=== PATIENT | female | born 1950 | race Caucasian/White ===

== ENCOUNTER 2021-09-02 11:13 | Outpatient (CLI) | payer MEDICARE ==
[2021-09-02 13:00] LABS: Hemoglobin 13.4 g/dL (12.0-15.5); Mean Corpuscular HGB CONC 32.2 g/dL (32.0-36.0); Mean Corpuscular Hemoglobin 29.9 pg (27.0-33.0); Mean Corpuscular Volume 92.9 fl (81.6-98.3); Platelet Count 226 10x3/uL (150-450); RBC Distribution Width 12.7 % (11.5-14.5); Red Blood Cell (RBC) Count 4.48 10x6/uL (3.90-5.03); White Blood Cell (WBC) Count 7.4 10x3/uL (3.5-10.5)
[2021-09-02 13:03] LABS: Anion Gap 11 mmol/L (10-20); BUN (Urea Nitrogen) 17 mg/dL (9.8-20.1); Calc. Creatinine Clearance 0 mL/min (70-130); Calcium 9.5 mg/dL (7.8-10.44); Carbon Dioxide 28 mmol/L (23-31); Chloride 105 mmol/L (98-107); Glucose 101 mg/dL (83-110); Potassium 4.3 mmol/L (3.5-5.1); Sodium 140 mmol/L (136-145)
[2021-09-02 20:38] LABS: SARS-CoV-2 PCR by NAA Not Detected (NotDetected)
== END 2021-09-02 11:14 | disposition home or self-care (01) ==
LOC: CSHLAB 11:13
PROVIDERS: ATTEND Podiatrist Foot & Ankle Surgery
DX: Z01.818 Encounter for other preprocedural examination (principal); Z20.822 Contact with and (suspected) exposure to COVID-19
CPT/HCPCS: 80048; 85027; U0003; U0005

== ENCOUNTER 2021-09-05 09:44 | Day surgery (SDC) | payer MEDICARE ==
[2021-08-21 14:29] VITALS: BMI 24.5
[2021-09-05] MEDS ORDERED: Neomycin-Polymyxin 1 ML AMP ONE (10:31)
[2021-09-05] MEDS ORDERED: Bupivacaine PF 0.5% 30 ML VIAL ONE (10:31)
[2021-09-05] MEDS ORDERED: ceFAZolin 2 GM/Dextrose 50 ML IVPB ONE (11:05)
[2021-09-05] MEDS ORDERED: Ondansetron PF 4 MG/2 ML Vial ONE (11:24)
[2021-09-05] MEDS ORDERED: PROPOFOL 20 ML ONE (11:24)
[2021-09-05] MEDS ORDERED: Fentanyl 100 MCG/2 ML VIAL ONE (11:24)
[2021-09-05] MEDS ORDERED: Dexamethasone 4 mg/ml Vial ONE (11:24)
[2021-09-05] MEDS ORDERED: Lidocaine 1% PF 5 ML VIAL ONE (11:24)
[2021-09-05] MEDS ORDERED: ePHEDrine Sulfate 50 MG/10 ML VIAL ONE (11:41)
[2021-09-05] MEDS ORDERED: PHENYLEPHRINE-NS 100 MCG/ML 10 ML SYRINGE ONE (11:46)
== END 2021-09-05 13:10 | disposition home or self-care (01) ==
LOC: CSHSDC 09:44
PROVIDERS: ATTEND Podiatrist Foot & Ankle Surgery
DX: M20.42 Other hammer toe(s) (acquired), left foot (principal); Z79.899 Other long term (current) drug therapy; E78.5 Hyperlipidemia, unspecified; H40.9 Unspecified glaucoma; K21.9 Gastro-esophageal reflux disease without esophagitis
CPT/HCPCS: J0690; J1100; J2405; J2704; J3010; S0020